=== PATIENT | female | born 1980 | race Caucasian/White ===

== ENCOUNTER 2025-04-26 16:33 | Emergency (ER) | payer BC ==
[2025-04-26] MEDS ORDERED: Sodium Chloride 0.9% 10 ML Syringe FLUSH PRN (17:01)
[2025-04-26 17:11] LABS: BASOPHILS ABSOLUTE AUTO 0.1 K/mm3 (0.0-0.2); BASOPHILS PERCENT AUTO 0.8 % (0.0-1.0); EOSINOPHILS ABSOLUTE AUTO 0.2 K/mm3 (0.0-0.4); EOSINOPHILS PERCENT AUTO 2.4 % (0.0-6.0); IMMATURE GRAN ABSOLUTE AUTO 0.01 K/mm3 (0.00-0.05); IMMATURE GRAN PERCENT AUTO 0.1 % (0.0-0.4); LYMPHOCYTES ABSOLUTE AUTO 3.3 K/mm3 (1.0-4.8); LYMPHOCYTES PERCENT AUTO 37.0 % (24.0-44.0); MEAN PLATELET VOLUME 9.5 fl (9.4-12.3); MONOCYTES ABSOLUTE AUTO 0.6 K/mm3 (0.0-0.8); MONOCYTES PERCENT AUTO 7.1 % (0.0-8.0); NEUTROPHILS ABSOLUTE AUTO 4.7 K/mm3 (1.8-7.7); NEUTROPHILS PERCENT AUTO 52.6 % (41.0-71.0); NRBC ABSOLUTE 0.00 (0.00-0.02); NRBC PERCENT 0.0 % (0.0-0.2); PLATELET COUNT,PLT 328 K/mm3 (150-400); RED BLOOD CELL COUNT 4.78 M/mm3 (4.10-5.30); WHITE BLOOD CELL COUNT,WBC 8.91 K/mm3 (3.9-11.3)
[2025-04-26] MEDS: Ondansetron 4 MG/2 ML SDV IVPUSH ONE (17:19)
[2025-04-26 17:28] LABS: A/G RATIO 1.3 (1-2); ALANINE AMINOTRANSFERASE,ALT 11.0 U/L (14-59); ASPARTATE AMNIOTRANSFERASE,AST 13.0 U/L (15-37); BILIRUBIN TOTAL 0.2 mg/dL (0.2-1.0); BLOOD UREA NITROGEN,BUN 13.0 mg/dL (7-18); CARBON DIOXIDE,CO2 24.0 mEq/L (21-32); CHLORIDE,CL 107.0 mEq/L (98-107); CREATININE 0.7 mg/dL (0.55-1.02); EST CRCL DRUG DOSING (CG) 72.13 mL/min; ESTIMATED GFR 108.0 mL/min (>60); GLUCOSE RANDOM 95.0 mg/dL (70-99); POTASSIUM,K 3.5 mEq/L (3.5-5.1); PROTEIN TOTAL,TP 7.4 g/dl (6.4-8.2); SODIUM,NA 140.0 mEq/L (136-145)
[2025-04-26 17:45] LABS: APPEARANCE,URINE SLT CLOUDY (Clear); GLUCOSE,URINE NEGATIVE (Negative); OCCULT BLOOD,URINE 3+ (Negative)
[2025-04-26 17:56] LABS: EPITHELIAL CELLS,URINE 0-5 /hpf (0-5)
[2025-04-26] MEDS: Sodium Chloride 0.9% 10 ML Syringe FLUSH ONE (18:18)
[2025-04-26] MEDS: Iopamidol 612 MG/ML 100 ML Bottle IVPUSH ONE (18:18)
[2025-04-26] MEDS: Ketorolac 30 MG/ML SDV IVPUSH ONE (19:18)
== END 2025-04-26 19:36 | disposition home or self-care (01) ==
LOC: JD.ED 16:33
DX: N13.2 Hydronephrosis with renal and ureteral calculous obstruction (principal); Z79.899 Other long term (current) drug therapy; F17.200 Nicotine dependence, unspecified, uncomplicated
CPT/HCPCS: 36415; 74177; 80053; 81001; 84702; 85025; 86140; 96374; 96375; 99284; A9270; J1885; J2405; J7030; Q9967; J1171

== ENCOUNTER 2025-05-15 19:39 | Emergency (ER) | payer BC ==
[2025-05-15 20:09] LABS: APPEARANCE,URINE CLEAR (Clear); GLUCOSE,URINE NEGATIVE (Negative); OCCULT BLOOD,URINE 2+ (Negative)
[2025-05-15] MEDS: Ondansetron 4 MG/2 ML SDV IV STA (20:18)
[2025-05-15] MEDS: Acetaminophen/HYDROcodone 325-5 MG Tab PO STA (20:19)
[2025-05-15] MEDS: Ketorolac 30 MG/ML SDV IVPUSH ONE (20:21)
[2025-05-15 20:24] LABS: BASOPHILS ABSOLUTE AUTO 0.1 K/mm3 (0.0-0.2); BASOPHILS PERCENT AUTO 0.9 % (0.0-1.0); EOSINOPHILS ABSOLUTE AUTO 0.3 K/mm3 (0.0-0.4); EOSINOPHILS PERCENT AUTO 2.7 % (0.0-6.0); IMMATURE GRAN ABSOLUTE AUTO 0.02 K/mm3 (0.00-0.05); IMMATURE GRAN PERCENT AUTO 0.2 % (0.0-0.4); LYMPHOCYTES ABSOLUTE AUTO 2.3 K/mm3 (1.0-4.8); LYMPHOCYTES PERCENT AUTO 24.2 % (24.0-44.0); MEAN PLATELET VOLUME 9.9 fl (9.4-12.3); MONOCYTES ABSOLUTE AUTO 1.0 K/mm3 (0.0-0.8); MONOCYTES PERCENT AUTO 10.8 % (0.0-8.0); NEUTROPHILS ABSOLUTE AUTO 5.7 K/mm3 (1.8-7.7); NEUTROPHILS PERCENT AUTO 61.2 % (41.0-71.0); NRBC ABSOLUTE 0.00 (0.00-0.02); NRBC PERCENT 0.0 % (0.0-0.2); PLATELET COUNT,PLT 273 K/mm3 (150-400); RED BLOOD CELL COUNT 4.61 M/mm3 (4.10-5.30); WHITE BLOOD CELL COUNT,WBC 9.34 K/mm3 (3.9-11.3)
[2025-05-15 20:25] LABS: EPITHELIAL CELLS,URINE 0-5 /hpf (0-5)
[2025-05-15] MEDS: Ketorolac 60 MG/2 ML SDV IVPUSH STA (20:25)
[2025-05-15 20:31] LABS: BUPRENORPHINE SCREEN,URINE NEGATIVE (CUTOFF=10); METHADONE SCREEN, URINE NEGATIVE (CUTOFF=200); METHAMPHETAMINES SCREEN, URINE NEGATIVE (CUTOFF=500); OXYCODONE SCREEN,URINE NEGATIVE (CUT0FF=100); THC SCREEN,URINE 20 NG/ML NEGATIVE (CUTOFF=50)
[2025-05-15 20:36] LABS: AMPHETAMINES SCREEN, URINE NEGATIVE (CUTOFF=500)
[2025-05-15 20:41] LABS: A/G RATIO 1.3 (1-2); ALANINE AMINOTRANSFERASE,ALT 14.0 U/L (14-59); ASPARTATE AMNIOTRANSFERASE,AST 16.0 U/L (15-37); BILIRUBIN TOTAL 0.4 mg/dL (0.2-1.0); BLOOD UREA NITROGEN,BUN 14.0 mg/dL (7-18); CARBON DIOXIDE,CO2 29.0 mEq/L (21-32); CHLORIDE,CL 105.0 mEq/L (98-107); CREATINE KINASE,CK 47.0 U/L (26-192); CREATININE 1.4 mg/dL (0.55-1.02); EST CRCL DRUG DOSING (CG) 36.07 mL/min; ESTIMATED GFR 47.0 mL/min (>60); GLUCOSE RANDOM 91.0 mg/dL (70-99); POTASSIUM,K 3.8 mEq/L (3.5-5.1); PROTEIN TOTAL,TP 7.2 g/dl (6.4-8.2); SODIUM,NA 142.0 mEq/L (136-145)
== END 2025-05-15 22:35 | disposition home or self-care (01) ==
LOC: JD.ED 19:39
DX: N13.2 Hydronephrosis with renal and ureteral calculous obstruction (principal); N28.9 Disorder of kidney and ureter, unspecified; F17.200 Nicotine dependence, unspecified, uncomplicated; Z79.899 Other long term (current) drug therapy
CPT/HCPCS: 36415; 74176; 80053; 80306; 81001; 82550; 83690; 83735; 85025; 96361; 96374; 96375; 99284; A9270; J1885; J2405; J7030